=== PATIENT | male | born 1940 | race Caucasian/White ===

== ENCOUNTER 2018-06-27 12:13 | Emergency (ER) | payer MEDICARE ==
[~2018-06-27] VITALS: Ht 177.8 cm; Wt 113.4 kg
[2018-06-27 12:25] VITALS: BP_SYST 162
[2018-06-27] MEDS ORDERED: NITROGLYCERIN 1 INCH (GM) OINT. TP ONE (12:30)
[2018-06-27] MEDS ORDERED: ASPIRIN 81 MG TAB.CHEW PO ONE (12:30)
[2018-06-27 12:47] LABS: EOSINOPHILS # (AUTO) 0.2 K/uL (0.0-0.4); MEAN CORPUSCULAR VOLUME 89 fL (79.0-98.0)
[2018-06-27] MEDS ORDERED: DIGO-31 PO (12:56)
[2018-06-27] MEDS ORDERED: HYDR25TA4 PO (12:56)
[2018-06-27] MEDS ORDERED: POTA10TA15 PO (12:56)
[2018-06-27] MEDS ORDERED: TRI48 PO (12:56)
[2018-06-27] MEDS ORDERED: WARF5TAB2 PO (12:56)
[2018-06-27] MEDS ORDERED: ASPI-1077 PO (12:56)
[2018-06-27] MEDS ORDERED: LISI-600 PO (12:56)
[2018-06-27] MEDS ORDERED: ISOS60TA4 PO (12:56)
[2018-06-27] MEDS ORDERED: LIP10 PO (12:56)
[2018-06-27] MEDS ORDERED: ATEN-168 PO (12:56)
[2018-06-27 12:59] LABS: ANION GAP 5 (5-15); CHLORIDE 106 mmol/L (98-107); CREATININE 2.11 mg/dL (0.55-1.30); GLUCOSE 229 mg/dL (70-99); POTASSIUM 4.5 mmol/L (3.5-5.1); SODIUM SERUM 139 mmol/L (136-145); UREA NITROGEN, BLOOD 58 mg/dL (8-21)
[2018-06-27 13:01] LABS: INR 2.5 (0.80-1.20); PROTHROMBIN TIME 24.2 SECS (9.5-12.5)
[2018-06-27 13:14] LABS: RED BLOOD CELL COUNT(AUTO) 4.91 MIL/uL (4.2-6.2); WHITE BLOOD COUNT (AUTO) 9.2 K/uL (4.8-10.8)
[2018-06-27 13:15] LABS: ALANINE AMINOTRANSFERASE 22 U/L (12-78); ALBUMIN 3.2 g/dL (3.4-4.8); ASPARTATE AMINOTRANSFERASE 21 U/L (10-37); BASOPHILS # (AUTO) 0.1 K/uL (0.0-0.2); BASOPHILS % (AUTO) 0.8 % (0.0-2.0); EOSINOPHILS % (AUTO) 2.7 % (0.0-4.0); HEMATOCRIT 43.5 % (36-54); HEMOGLOBIN 14.1 g/dL (14.0-18.0); LYMPHOCYTES # (AUTO) 1.2 K/uL (1.0-5.5); LYMPHOCYTES % (AUTO) 13.2 % (20.5-51.5); MEAN CORPUSCULAR HEMOGLOBIN 29 pg (27-31); MEAN CORPUSCULAR HGB CONC 33 % (32-36); MONOCYTES % (AUTO) 10.8 % (1.7-9.3); NEUTROPHILS # (AUTO) 6.7 K/uL (1.8-7.7); NEUTROPHILS % (AUTO) 72.5 % (40.0-70.0); PLATELET COUNT (AUTO) 198 K/uL (130-430); RED CELL DISTRIBUTION WIDTH 18.9 % (9.0-15.0); TOTAL BILIRUBIN 0.6 mg/dL (0.0-1.0)
[2018-06-27] MEDS ORDERED: FUROSEMIDE 100 MG/10 ML VIAL IVP ONE (13:30)
[2018-06-27 15:18] LABS: BILIRUBIN,URINE NEGATIVE (NEGATIVE); BLOOD, URINE NEGATIVE (NEGATIVE); CLARITY/URINE CLEAR (CLEAR); COLOR,URINE YELLOW (YELLOW); GLUCOSE,URINE 1+ (NEGATIVE); KETONES,URINE NEGATIVE (NEGATIVE); LEUKOCYTE ESTERASE ,URINE NEGATIVE (NEGATIVE); NITRITE, URINE NEGATIVE (NEGATIVE); PH,URINE 5.5 (5.0-8.0); PROTEIN URINE NEGATIVE (NEGATIVE); UROBILINOGEN,URINE 0.2 (0.2-1.0)
[2018-06-27 15:50] VITALS: BP_SYST 124
== END 2018-06-27 15:50 | disposition short-term general hospital (02) ==
LOC: SED 12:13
DX: I11.0 Hypertensive heart disease with heart failure (principal); I50.9 Heart failure, unspecified; R06.02 Shortness of breath; I48.91 Unspecified atrial fibrillation; Z95.1 Presence of aortocoronary bypass graft; Z79.899 Other long term (current) drug therapy
CPT/HCPCS: 36415; 71045; 80053; 81003; 83880; 84484; 85025; 85610; 93005; 96374; 99284; J1940